=== PATIENT | female | born 1980 | race Caucasian/White ===

== ENCOUNTER 2025-05-02 09:24 | Emergency (ER) | payer MEDICAID, SELFPAY ==
[2025-05-02] VITALS (18 sets, daily range): BP systolic 99–121; BP diastolic 58–107; PULSE 87–106; RESP 12–21; TEMP 37.2; O2SAT 97–100; BMI 25.9
--- NOTE | 2025-05-02 09:58 | ED_ITS ---
HPI - General Adult General Chief complaint: Ear/Nose/Throat Problem Stated complaint: Jaw swelling, headache, eye pain Time Seen by Provider: 05/02/25 09:58 History of Present Illness HPI narrative: Patient reports a headache that began on . She then noted pain and swelling around the left eye. Now those symptoms are still present and she also feels left jaw pain. She went to Urgent care who performed an EKG and saw ST changes so was sent to ED . EKG is SR tachycardia at 101 in triage. 44-year-old woman presenting to the emergency department with complaint of headache. This has been coming and going with some soreness at the posterior left neck at the base of the skull over the last 3 days. She woke this morning with much more discomfort in the left jaw area and some swelling around her left eye with some discomfort and swelling. Presented to the urgent care with the jaw discomfort and having experienced some nausea and lightheadedness. EKG was done and would nonspecific ST changes by my review was directed to the emergency department for further evaluation. she is not having any chest pain or shortness of breath. Has not had any rashes or blisters noted. No trauma noted. No dental problems. Related Data Home Medications ?Medication ?Instructions ?Recorded ?Confirmed No Known Home Medications 05/02/2510/21 Allergies Allergy/AdvReac Type Severity Reaction Status Date / Time ciprofloxacin (From Cipro) Allergy Verified 05/02/25 09:44 Review of Systems Status of ROS: Reports: 6 or more systems reviewed and unremarkable except as noted in History and below Exam Narrative: Exam Narrative: Pleasant. Calm. NAD. Head is atraumatic. There is reproducible soreness at the insertion of the left paracervical musculature in to the occiput of the skul l. No swelling here. The left eyelid is a little puffy and reportedly sore. I have not inverted at this point. Some soreness about the left TMJ or little anterior to that. Ear canals are clear of any lesions. Oropharynx is unremarkable with dentition in good repair. Heart in regular rate and rhythm without murmur rub or gallop. Lungs appear clear. Well-perfused peripherally without edema. Const: Vital Signs, click to edit/add: Vital Signs - 24 hr 05/02/25 09:43 05/02/25 09:44 05/02/25 09:44 Temperature 98.9 F Pulse Rate 97 105 H Pulse Rate [Pulse Oximeter] 101 H Respiratory Rate 18 Blood Pressure 121/107 H Blood Pressure [Ri ght Upper Arm] 119/76 Pulse Oximetry 100 99 100 Oxygen Delivery Me thod Room Air 05/02/25 09:45 05/02/25 10:00 05/02/25 10:01 Temperature Pulse Rate 103 H 101 H 96 Pulse Rate [Pulse Oximeter] Respiratory Rate 19 Blood Pressure 113/67 Blood Pressure [Ri ght Upper Arm] Pulse Oximetry 100 99 100 Oxygen Delivery Me thod 05/02/25 10:15 05/02/25 10:38 05/02/25 10:45 Temperature Pulse Rate 96 106 H 98 Pulse Rate [Pulse Oximeter] Respiratory Rate 13 21 Blood Pressure Blood Pressure [Ri ght Upper Arm] Pulse Oximetry 99 99 99 Oxygen Delivery Me thod 05/02/25 11:00 05/02/25 11:01 05/02/25 11:15 Temperature Pulse Rate 91 99 98 Pulse Rate [Pulse Oximeter] Respiratory Rate 18 20 Blood Pressure 106/58 L Blood Pressure [Ri ght Upper Arm] Pulse Oximetry 98 98 98 Oxygen Delivery Me thod 05/02/25 11:30 05/02/25 11:31 05/02/25 11:45 Temperature Pulse Rate 87 89 88 Pulse Rate [Pulse Oximeter] Respiratory Rate 20 12 Blood Pressure 99/70 Blood Pressure [Ri ght Upper Arm] Pulse Oximetry 97 97 98 Oxygen Delivery Me thod 05/02/25 12:00 05/02/25 12:01 05/02/25 12:15 Temperature Pulse Rate 90 90 92 Pulse Rate [Pulse Oximeter] Respiratory Rate 15 Blood Pressure 107/75 Blood Pressure [Ri ght Upper Arm] Pulse Oximetry 99 100 99 Oxygen Delivery Me thod 05/02/25 12:30 Temperature Pulse Rate 102 H Pulse Rate [Pulse Oximeter] Respiratory Rate Blood Pressure Blood Pressure [Ri ght Upper Arm] Pulse Oximetry 99 Oxygen Delivery Me thod Documenting provider has reviewed patient's vital signs: yes Course Vital Signs Vital signs: Initial Vital Signs Pulse Rate 97 05/02/25 09:43 Blood Pressure 121/107 H 05/02/25 09:43 Blood Pressure Mean 111 H 05/02/25 09:43 Pulse Oximetry 100 05/02/25 09:43 Vital Signs Pulse Rate 97 05/02/25 09:43 Blood Pressure 121/107 H 05/02/25 09:43 Pulse Oximetry 100 05/02/25 09:43 Temperature 98.9 F 05/02/25 09:44 Pulse Rate 102 H 05/02/25 12:30 Respiratory Rate 15 05/02/25 12:00 Blood Pressure 107/75 05/02/25 12:01 Pulse Oximetry 99 05/02/25 12:30 Oxygen Delivery Method Room Air 05/02/25 09:44 Medical Decision Making MDM Narrative Medical decision making narrative: Differential might include occipital neuralgia, TMJ but she notes some does not have a known history of this are a teeth grinding. Tic douloureux seems less likely. Describes herself generally as a rather chill person. [place] Anne was in differential but I do not see any lesions. Evolving zoster? Lightheadedness and nausea might represent cardiac concern or possibly related to trigger point sort of sensation. Pulmonary embolus? Dissection? Monitor on security monitor. Check standard labs. Does not feel like she needs any treatment for symptoms currently. Labs are wholly reassuring. No events during time of monitoring in the emergency department. Normal D-dimer. Continue to monitor symptoms closely. Heart rate was elevated for unclear reason during time in the ER. See patient discharge plan for further discussion You might finish this discomfort off with some ibuprofen. Stay well-hydrated. Over the next few days consider gentle pulldowns on your neck as demonstrated; maybe a massage? Medical Records Medical records reviewed: Yes I reviewed the patient's medical records Lab Data Lab results reviewed: Yes I reviewed the patient's lab results Labs: Lab Results 05/02/25 05/02/25 Range/Units 10:17 10:40 WBC 5.16 (4.50-11.00) K/uL RBC 4.47 (4.00-5.20) m/uL Hgb 13.0 (12.0-16.0) gm/dL Hct 39.7 (33.0-51.0) % MCV 89 (80-100) fL MCH 29 (26-34) pg MCHC 33 (32-36) gm/dL RDW Coeff of Monica 11.9 (11.5-15.5) % Plt Count 184 (140-440) K/uL Neut % (Auto) 75.3 H (42.0-72.0) % Lymph % (Auto) 15.3 L (20-44) % Limestone % (Auto) 7.8 (0.0-11.0) % Eos % (Auto) 1.2 (0.0-7.0) % Baso % (Auto) 0.4 (0.0-3.0) % Neut # (Auto) 3.90 (1.7-7.0) K/uL Lymph # (Auto) 0.80 L (0.90-2.90) K/uL Limestone # (Auto) 0.40 (0.00-0.90) K/UL Eos # (Auto) 0.06 (0.00-0.50) K/uL Baso # (Auto) 0.02 (0.00-0.30) K/uL Abs Immat Gran (auto) 0.00 (0.00-0.30) K/uL Imm/Tot Granulo (auto) 0.0 % D-Dimer Quant (PE/DVT) 0.48 (0.00-0.50) ug/ml Sodium 141 (135-149) mmol/L Potassium 3.9 (3.6-5.1) mmol/L Chloride 107 (96-114) mmol/L Carbon Dioxide 25 (20-32) mmol/L Anion Gap 9 (7-15) mEq/L BUN 13 (5-24) mg/dL Creatinine 0.6 (0.5-1.5) mg/dL Estimated Creat Clear 101.04 Estimated GFR 115 ml/min Glucose 97 (60-115) mg/dL Calcium 9.3 (8.4-10.6) mg/dL Troponin I < 0.01 (0.01-0.04) ng/mL C-Reactive Protein < 0.5 L (0.5-1.0) mg/dL NT-Pro-B Natriuret Pep < 20 (See Note) pg/mL POC Troponin I 0.00 L (0.01-0.04) ng/ml ECG Data Attestation: I personally reviewed and interpreted this ECG as follows: (Sinus tachycardia. 101) Discharge Plan Discharge Clinical Impression: Neck pain, Muscle tension pain Patient Disposition: Home, Self-Care Condition: Improved Additional Instructions: You might finish this discomfort off with some ibuprofen. Stay well-hydrated. Over the next few days consider gentle pulldowns on your neck as demonstrated; maybe a massage? Prescriptions: No Action No Known Home Medications Follow Up/Referrals: Provider,Not a Local [Primary Care Provider, Family Practice] Stand Alone Forms: Navarik[employer] Info Instructions
--- OUTSIDE RECORDS SUMMARY | 2025-05-02 10:17 | XMS_ITS | Clinical Summary ---
Author Organization [facility] Address [address] [place] [id number] Care Team Providers Care Laser Set Up Operator Name Role Phone India Lorenzo DO Primary Care Provider [phone] Allergies Active Allergy Reactions Criticality Noted Date Comments Ciprofloxacin Rash 02/02/2025 Medications No known medications Active Problems Problem Noted Date Diagnosed Date Rheumatoid arthritis, seropositive 02/02/2025 Overview (02/02/2025): Not seeing rheumatology, not on medications, controlled by lifestyle Encounters Date Type Department Care Team Description 05/02/2025 Nurse Triage [facility] [address] [place] [address] India Lorenzo DO Jaw Pain (Headache that started on 04/27/2025, Eye swelling that started on Thursday. ) 02/15/2025 Orders Only [facility] Scanner 1 scan: (1-Ord) INCOMING RECORDS-[facility], [facility] and [facility], 02/15/2025 02/15/2025 Orders Only [facility] Scanner 1 scan: (1-Ord) INCOMING RECORDS-, [facility] and [facility], 02/15/2025 02/02/2025 7:40 AM CDT Office Visit [facility] [address] [place] [address] India Lorenzo DO Establish Care; Physical (44 year old female) 02/02/2025 Travel from Last 3 Months Immunizations Immunization Administration Dates Next Due Hepatitis A (Adult) 03/06/2006,09/12/2005 Hepatitis B (Adult) 03/06/2006,10/14/2005,2005 Influenza A (H1N1), Inactivated 05/03/2009 Tdap 09/26/2008,09/24/2007 Family History Medical History Relation Name Comments Asthma Daughter 1 Heart Disease Maternal Grandfather Asthma Sister As a child (lacey saunders has grown out of as an adult) eosinophilic esophagitis Son Cancer-breast No Family History Cancer-colon No Family History Cancer-ovarian No Family History Cancer-prostate No Family History Diabetes No Family History Relation Name Status Comments Brother Alive Daughter 1 Alive Daughter 2 Alive Father Alive Maternal Grandfather Maternal Grandmother Mother Alive Paternal Grandfather Paternal Grandmother Sister Alive Son Alive Social History Tobacco Use Types Packs/Day Years Used Date Smoking Tobacco: Never Smokeless Tobacco: Never Tobacco Cessation:Counseling Given: Not Answered Alcohol Use Standard Drinks/Week Comments Yes 0 (1 standard drink = 0.6 oz pur e alcohol) PHQ-2 Answer Date Recorded PHQ-2 TOTAL SCORE 0 02/02/2025 Social Connections Answer Date Recorded Do you often feel lonely or isolated from those around you? 0 02/02/2025 Financial Resource Strain Answer Date R ecorded Difficulty of Paying Living Expenses 3 02/02/2025 Difficulty of Paying Living Expenses Not on file 02/02/2025 Food Insecurity Answer Date Recorded Do you worry your food will run out before you are able to buy more? 1 02/02/2025 Transportation Needs Answer Date Record ed Does lack of transportation keep you from medica l appointments? 1 02/02/2025 Does lack of transportation keep you from work, meetings or getting things that you need? 1 02/02/2025 Housing Stability Answer Date Recorded What is your housing situation today? 1 02/02/2025 Utilities Answer Date Recorded Do you have trouble paying f or utilities (for example, heat, electricity, water, phone)? 1 02/02/2025 Comments No Sex and Gender Information Value Date Recorded Sex Assigned at Not on file Legal Sex Female 10:54 AM CDT Gender Identity Not on file Sexual Orientation Not on file Obstetrics History Last Filed Vital Signs Vital Sign Reading Time Taken Comments Blood Pressure 120/73 02/02/2025 7:49 AM CDT Pulse 89 02/02/2025 7:49 AM CDT Temperature - - Respiratory Rate - - Oxygen Saturation 100% 02/02/2025 7:49 AM CDT Inhaled Oxygen Concentration - - Weight 67.7 kg (149 lb 3.2 oz) 02/02/2025 7:49 A M CDT Height 160.5 cm (5' 3.19) 02/02/2025 7:49 AM CD T Body Mass Index 26.27 02/02/2025 7:49 AM CDT Plan of Treatment Upcoming Encounters Date Type Department Care Team (Late st Contact Info) Description 05/02/2025 1:45 PM MELT ROOM OPERATOR Office Visit [facility] [address] [place] [address] India Lorenzo Xiomara, DO [address] [place] [address] Health Maintenance Due Date Last Done Comments HIV for age 15-65 1997 Hepatitis C screening for ag e 18-79 2000 Pap test for age 21-65 12/12/2003 HPV series for age 9-45 (1 - 3-dose SCDM series) 2009 Tetanus booster 09/26/2018 09/26/2008, 09/24/2007 Influenza Vaccine (#1) 2025 BMI (ht and wt on same day) for age 18+ 02/02/2026 02/02/2025 Depression screening for age 12+ 02/02/2026 02/02/2025 RSV vaccine for adults or (1 - 1-dose 75+ series) 2057 Hepatitis B series for 19+ Completed 03/06, 10/14/2005, 09/12/2005 Pneumococcal series for age 6-49 Aged Out No longer eligible b ased on patient's age to complete this topic Procedures Procedure Name Priority Date/Time Associated Diagnosis Comments SCAN CORRESP-LABORATORY RESULTS 02/15/2025 12:00 AM CDT SCAN CORRESP-IMAGING 02/15/2025 12:00 AM CDT LIPID PANEL W REFLEX MEASURED LDL Routine 02/02/2025 8:39 AM CDT Screening cholesterol level HEMOGLOBIN A1C Routine 02/02/2025 8:39 AM CDT Diabetes mellitus screening from Last 3 Months Results * SCAN CORRESP-LABORATORY RESULTS (02/15/2025 12:00 AM CDT) us Scanner OTHER Final Result * SCAN CORRESP-IMAGING (02/15/2025 12:00 AM CDT) Anatomical Region Laterality Modality Other us Scanner OTHER Final Result * HEMOGLOBIN A1C (02/02/2025 8:39 AM CDT) HEMOGLOBIN A1C 5.3 <5.7 % [facility] Comment: For the purpose of screening for the presence of diabetes: <5.7% Consistent with the absence of diabetes 5.7-6.4% Consistent with increased risk for diabetes (prediabetes) > or =6.5% Consistent with diabetes This assay result is consistent with a decreased risk of diabetes. Currently, no consensus exists regarding use of hemoglobin A1c for diagnosis of diabetes in children. According to [place] Diabetes Association (ADA) guidelines, hemoglobin A1c <7.0% represents optimal control in non- diabetic patients. Different metrics may apply to specific patient populations. Standards of Medical Care in Diabetes(ADA). Blood BLOOD SPECIMEN / Unknown 02/02/2025 8:39 AM CDT 02/02/2025 8:39 AM CDT us India Lorenzo DO CHEMISTRY Final Result [facility] [address] [place] [address], [facility] [address] [place] [address] * LIPID PANEL W REFLEX MEASURED LDL (02/02/2025 8:39 AM CDT) CHOLESTEROL, TOTAL 149 <200 mg/dL [facility] HDL CHOLESTEROL 52 > OR = 50 mg/dL [facility] TRIGLYCERIDES 43 <150 mg/dL [facility] LDL-CHOLESTEROL 85 mg/dL (calc) [facility] Comment: Reference range: <100 Desirable range <100 mg/dL for primary prevention; <70 mg/dL for patients with CHD or diabetic patients with > or = 2 CHD risk factors. LDL-C is now calculated using the Carrie calculation, which is a validated novel method providing better accuracy than the Friedewald equation in the estimation of LDL-C. Eloy KLEIN et al. AUGIE. 2013;310(19): 1708-7371 (http://education.ReactX/faq/SNV699) CHOL/HDLC RATIO 2.9 <5.0 (calc) [facility] NON HDL CHOLESTEROL 97 <130 mg/dL (calc) [facility] Comment: For patients with diabetes plus 1 major ASCVD risk factor, treating to a non-HDL-C goal of <100 mg/dL (LDL-C of <70 mg/dL) is considered a therapeutic option. Blood BLOOD SPECIMEN / Unknown 02/02/2025 8:39 AM CDT 02/02/2025 8:39 AM CDT India Xiomara Lorenzo DO CHEMISTRY Final Result Differential [facility] [address] [place] [address], [facility] [address] [place] [address] from Last 3 Months Insurance [facility] [place] Care Teams Laser Set Up Operator Relationship Specialty Start Date End Date India Lorenzo DO [address] [place] [address] PCP - General Family Practice 02/02/25
[2025-05-02 10:49] LABS: Hematocrit* 39.7 % (33.0-51.0); Hemoglobin* 13.0 gm/dL (12.0-16.0); Immature Granulocytes Abs Auto 0.00 K/uL (0.00-0.30); Immature Granulocytes Pct Auto 0.0 %; Mean Corpuscular HGB Conc 33 gm/dL (32-36); Mean Corpuscular Hemoglobin 29 pg (26-34); Mean Corpuscular Volume 89 fL (80-100); RDW Coefficient of Variation % 11.9 % (11.5-15.5); Red Blood Count* 4.47 m/uL (4.00-5.20); White Blood Count* 5.16 K/uL (4.50-11.00)
[2025-05-02 10:55] LABS: Troponin, Point-of-Care* 0.00 ng/ml (0.01-0.04)
[2025-05-02 10:57] LABS: Lymphocytes Absolute Auto 0.80 K/uL (0.90-2.90); Slide Review Reflex No
[2025-05-02 10:59] LABS: Chloride* 107 mmol/L (96-114)
[2025-05-02 11:00] LABS: Potassium* 3.9 mmol/L (3.6-5.1); Sodium* 141 mmol/L (135-149)
[2025-05-02 11:02] LABS: Blood Urea Nitrogen* 13 mg/dL (5-24); Creatinine* 0.6 mg/dL (0.5-1.5); Est. Creatinine Clearance* 101.04; Estimated Glomerular Filt Rate 115 ml/min
[2025-05-02 11:03] LABS: Anion Gap 9 mEq/L (7-15); Calcium* 9.3 mg/dL (8.4-10.6); Carbon Dioxide* 25 mmol/L (20-32); Glucose* 97 mg/dL (60-115)
[2025-05-02 11:04] LABS: D Dimer Quantitative* 0.48 ug/ml (0.00-0.50)
[2025-05-02 11:14] LABS: NT Pro B Type NatriureticPept* < 20 pg/mL (See Note)
== END 2025-05-02 12:34 | disposition home or self-care (01) ==
PROVIDERS: Emergency Provider Family Medicine
DX: M54.2 Cervicalgia (principal); M62.89 Other specified disorders of muscle
CPT/HCPCS: 36415; 80048; 83880; 84484; 85025; 85379; 86140; 93005; 99284